=== PATIENT | female | born 1960 | race Caucasian/White ===

== ENCOUNTER → 2020-09-26 | Outpatient (CLI) | payer MEDICARE, OTHER ==
[~2020-09-26] MED LIST: LIDOCAINE HCL/PF 1% 2ML VIAL ONE
== END | disposition home or self-care (01) ==
LOC: PF 12:49
PROVIDERS: ATTEND Internal Medicine Rheumatology
DX: M34.9 Systemic sclerosis, unspecified (principal)
CPT/HCPCS: 94060; 94727; 94729; J3490

== ENCOUNTER → 2020-10-26 | Outpatient (CLI) | payer MEDICARE, OTHER ==
[~2020-10-26] MED LIST changes: +ALBUTEROL (0.083%) 2.5MG/3ML NEB ONE; -LIDOCAINE HCL/PF 1% 2ML VIAL ONE
== END | disposition home or self-care (01) ==
LOC: PF 11:16
PROVIDERS: ATTEND Internal Medicine Rheumatology
DX: M34.9 Systemic sclerosis, unspecified (principal)
CPT/HCPCS: 94060; 94727; 94729

== ENCOUNTER → 2020-11-21 | Outpatient (CLI) | payer OTHER | END | disposition home or self-care (01) | LOC: LAB 11:32 | PROVIDERS: ATTEND Internal Medicine Rheumatology | DX: M34.89 Other systemic sclerosis (principal) | CPT/HCPCS: 94010; 94727 ==

== ENCOUNTER → 2020-12-21 | Outpatient (CLI) | payer OTHER | END | disposition home or self-care (01) | LOC: PF 11:27 | PROVIDERS: ATTEND Internal Medicine Rheumatology | DX: M34.9 Systemic sclerosis, unspecified (principal); J45.909 Unspecified asthma, uncomplicated; J40 Bronchitis, not specified as acute or chronic | CPT/HCPCS: 94060; 94727; 94729 ==

== ENCOUNTER → 2021-01-16 | Outpatient (CLI) | payer OTHER | END | disposition home or self-care (01) | LOC: PF 11:18 | PROVIDERS: ATTEND Internal Medicine Rheumatology | DX: M34.9 Systemic sclerosis, unspecified (principal) | CPT/HCPCS: 94060; 94727; 94729 ==

== ENCOUNTER → 2021-02-15 | Outpatient (CLI) | payer OTHER | END | disposition home or self-care (01) | LOC: PF 11:42 | PROVIDERS: ATTEND Internal Medicine Rheumatology | DX: M34.9 Systemic sclerosis, unspecified (principal); R06.02 Shortness of breath; R06.2 Wheezing | CPT/HCPCS: 94060; 94727; 94729 ==